=== PATIENT | male | born 2000 | race American Indian/Alaskan Native ===

== ENCOUNTER 2019-08-02 00:29 | Emergency (ER) | payer SELFPAY ==
[2019-08-02 00:37] VITALS: BP 150/88
[2019-08-02] MEDS ORDERED: methylPREDNISolone Sod Succinate 125 MG/2 ML INJ IV ONE (00:57)
[2019-08-02] MEDS ORDERED: SODIUM CHLORIDE 0.9% 1000 ML 1,000 ML IV ONE (00:57)
[2019-08-02] MEDS ORDERED: FAMOTIDINE 20 MG/2 ML INJ IV ONE (00:57)
[2019-08-02] MEDS ORDERED: diphenhydrAMINE 50 MG/ML VIAL IV ONE (00:57)
--- NOTE | 2019-08-02 01:37 | Emergency Department Report ---
HPI - General Chief Complaint: Allergic Reaction PUI?: No Time Seen by Provider: 08/02/19 00:56 - HPI HPI: Ms. Kimble is a 19-year-old -Citizen Of [place] male who presents for hives to face trunk and arms x3 days. Stated the symptoms started after eating shellfish. He does confirm allergy to shellfish. He denies shortness of breath, there is no wheezing, symptoms are exacerbated by scratching. Symptoms are relieved by nothing tried. ED Past Medical Hx - Past Medical History Previous Medical History?: No - Surgical History Past Surgical History?: No - Social History Smoking Status: Never Smoker Substance Use Type: None - Medications Home Medications: Home Medications Medication Instructions Recorded Confirmed Last Taken Type EPINEPHrine [Epipen 2-Bishop] 0.3 mg IM PRN PRN #1 1000units 08/02/19 Unknown Rx Famotidine [Pepcid] 20 mg PO BID #30 tablet 08/02/19 Unknown Rx diphenhydrAMINE [Benadryl CAP] 25 mg PO Q6HR PRN #30 capsule 08/02/19 Unknown Rx predniSONE [Deltasone] 40 mg PO QDAY 5 Days #10 tab 08/02/19 Unknown Rx ED Review of Systems ROS: Stated complaint: ALLERGIC REACTION Other details as noted in HPI Constitutional: denies: chills, fever Eyes: denies: eye pain, eye discharge, vision change ENT: denies: ear pain, throat pain, congestion Respiratory: denies: cough, shortness of breath, wheezing Cardiovascular: denies: chest pain, palpitations Endocrine: no symptoms reported Gastrointestinal: denies: abdominal pain, nausea, vomiting, diarrhea Genitourinary: denies: urgency, dysuria Musculoskeletal: denies: back pain, joint swelling, arthralgia Skin: rash, pruritus, other (hives face , neck trunk ) Neurological: denies: headache, weakness, numbness, paresthesias, confusion, vertigo Psychiatric: denies: anxiety, depression Hematological/Lymphatic: denies: easy bleeding, easy bruising Physical Exam - Physical Exam Vital Signs: Vital Signs 08/02/19 00:33 Temperature 99.7 F H Pulse Rate 127 H Respiratory 20 Rate Blood Pressure 150/88 O2 Sat by Pulse 99 Oximetry General: Noted hives to face neck and trunk. There is no wheezing no shortness of breath no respiratory distress no nausea vomiting. No open lesions no drainage. No fever chills lungs are clear throughout. ED Course Vital Signs 08/02/19 00:33 Temperature 99.7 F H Pulse Rate 127 H Respiratory 20 Rate Blood Pressure 150/88 O2 Sat by Pulse 99 Oximetry - Reevaluation(s) Reevaluation #1: Solu-Medrol, Pepcid, Benadryl, IV. 08/02/19 01:00 ED Medical Decision Making - Radiology Data Radiology results: image reviewed - Medical Decision Making Symptoms really, hives are resolving, patient given EpiPen teaching., Patient will be DC'd home in stable condition at this time , patient departing with prescriptions and follow-up instructions with PCP. Critical care attestation.: If time is entered above; I have spent that time in minutes in the direct care of this critically ill patient, excluding procedure time. ED Disposition Clinical Impression: Allergic reaction Qualifiers: Encounter type: initial encounter Qualified Code(s): T78.40XA - Allergy, unspecified, initial encounter Disposition: MED SCREENING EXAM-CONT Is pt being admited?: No Condition: Good Instructions: Food Allergy (ED), Urticaria (ED) Prescriptions: diphenhydrAMINE [Benadryl CAP] 25 mg PO Q6HR PRN #30 capsule PRN Reason: Allergy Symptoms predniSONE [Deltasone] 40 mg PO QDAY 5 Days #10 tab EPINEPHrine [Epipen 2-Bishop] 0.3 mg IM PRN PRN #1 1000units PRN Reason: allergies Famotidine [Pepcid] 20 mg PO BID #30 tablet Referrals: TANA DUVAL MD [Staff Physician] - 3-5 Days Forms: Work/School Release Form(ED)
== END 2019-08-02 03:22 | disposition home or self-care (01) ==
LOC: ED 00:29
DX: T78.40XA Allergy, unspecified, initial encounter (principal); Z91.013 Allergy to seafood; X58.XXXA Exposure to other specified factors, initial encounter
CPT/HCPCS: 96374; 96375; 99282; J1200; J2930; J7030